=== PATIENT | male | born 1980 | race Caucasian/White ===

== ENCOUNTER 2021-04-05 14:20 | Emergency (ER) | payer SELFPAY ==
[~2021-04-05] VITALS: Ht 160 cm; Wt 86.2 kg
[~2021-04-05 14:20] MED LIST: Prednisone20 MG PO
== END 2021-04-05 16:32 | disposition home or self-care (01) ==
LOC: ER 14:20
DX: S61.210A Laceration without foreign body of right index finger without damage to nail, initial encounter (principal); Z23 Encounter for immunization; Z87.891 Personal history of nicotine dependence; W45.8XXA Other foreign body or object entering through skin, initial encounter
CPT/HCPCS: 12001; 90471; 90714; 99282-25